=== PATIENT | male | born 1975 | race Caucasian/White ===

== ENCOUNTER → 2021-11-28 | Day surgery (SDC) | payer BC ==
[~2021-11-28] MED LIST: BUPIVACAINE 0.25% 30ML SDV ONE; DICLOFENAC POTA50 MG PO; DIOVAN320 MG PO; FENTANYL CITRATE/PF 100MCG/2 ML INJ ONE; IOPAMIDOL 200 MG/ML 20 ML VIAL IT ONE; LIDOCAINE HCL 1% 30ML-PF VIAL ONE; LIDOCAINE HCL 2% LOCAL INJ 5 ML SDV VIAL INJ ONE; MIDAZOLAM HCL 2 MG/2 ML VIAL ONE; NEURONTIN300 MG PO; POVIDONE IODINE 0.05% 0.05 % ML PO ONE; PROPOFOL IV EMULSION 10 MG/ML 20 ML VIAL ONE; SYNJARDY XR 251 EACH PO; TRIAMCINOLONE ACET 40 MG/ML VIAL ONE
[2021-11-28 07:35] VITALS: BP 122/82
== END | disposition home or self-care (01) ==
LOC: OR 05:35
PROVIDERS: ATTEND Specialist
DX: M16.0 Bilateral primary osteoarthritis of hip (principal); M47.816 Spondylosis without myelopathy or radiculopathy, lumbar region; E11.9 Type 2 diabetes mellitus without complications; I10 Essential (primary) hypertension; E78.5 Hyperlipidemia, unspecified; E66.01 Morbid (severe) obesity due to excess calories; Z01.810 Encounter for preprocedural cardiovascular examination; Z79.84 Long term (current) use of oral hypoglycemic drugs; Z79.899 Other long term (current) drug therapy; Z68.42 Body mass index [BMI] 45.0-49.9, adult
CPT/HCPCS: 20610; 36415; 77002; 82948; 93005; J2001; J2250; J2704; J3010; J3301; Q9967; 76000

== ENCOUNTER 2022-03-21 06:57 | Observation (INO) | payer BC ==
[2022-03-17 09:17] LABS: BASOPHILS # (AUTO) 0.1 (0.0-0.1); EOSINOPHILS # (AUTO) 0.8 (0.0-0.4); EOSINOPHILS % 9.6 % (0.0-6.0); HEMATOCRIT 44.8 % (38.2-49.6); HEMOGLOBIN 13.8 g/dL (14.0-18.0); LYMPHOCYTES # (AUTO) 2.2 (1.0-3.2); LYMPHOCYTES % 27.8 % (18.0-39.1); MEAN CORPUSCULAR HEMOGLOBIN 28.7 pg (28-32); MEAN CORPUSCULAR HGB CONC 30.8 g/dL (31-35); MEAN CORPUSCULAR VOLUME 93.1 fL (81-99); MONOCYTES # (AUTO) 0.7 (0.2-0.8); MONOCYTES % 8.6 % (4.4-11.3); NEUTROPHILS # (AUTO) 4.2 (2.1-6.9); NEUTROPHILS % 52.5 % (38.7-80.0); PLATELET COUNT 299 x10e3/uL (140-360); RED BLOOD COUNT 4.81 x10e6/uL (4.3-5.7); RED CELL DISTRIBUTION WIDTH 14.5 % (11.7-14.4)
[~2022-03-21] VITALS: Ht 172.7 cm; Wt 114.3 kg
[~2022-03-21 06:57] MED LIST changes: -BUPIVACAINE 0.25% 30ML SDV ONE; +CELEBREX200 MG PO; -FENTANYL CITRATE/PF 100MCG/2 ML INJ ONE; -IOPAMIDOL 200 MG/ML 20 ML VIAL IT ONE; -LIDOCAINE HCL 1% 30ML-PF VIAL ONE; -LIDOCAINE HCL 2% LOCAL INJ 5 ML SDV VIAL INJ ONE; +METFORMIN HCL500 M1 PO; -MIDAZOLAM HCL 2 MG/2 ML VIAL ONE; +ORPHENADRINE C100 MG PO; -POVIDONE IODINE 0.05% 0.05 % ML PO ONE; -PROPOFOL IV EMULSION 10 MG/ML 20 ML VIAL ONE; +ROPIVACAINE 246.25 MG, EPINEPHRINE HCL 1:1000 1ML 0.5 MG, CLONIDINE HCL 0.08 MG, KETORO... INJ ONE; -TRIAMCINOLONE ACET 40 MG/ML VIAL ONE
[2022-03-21] MEDS ORDERED: CELECOXIB 200 MG CAP ONE (07:36)
[2022-03-21] MEDS ORDERED: DEXAMETHASONE SOD PHOS 10 MG/1 ML VIAL ONE (07:37)
[2022-03-21] MEDS ORDERED: GABAPENTIN 300 MG CAP ONE (07:38)
[2022-03-21] MEDS ORDERED: CEFAZOLIN SODIUM 2 GM ONE (07:38)
[2022-03-21] MEDS ORDERED: FENTANYL CITRATE/PF 100MCG/2 ML INJ ONE ×3 (08:19→13:04)
[2022-03-21] MEDS ORDERED: MIDAZOLAM HCL 2 MG/2 ML VIAL ONE (08:19)
[2022-03-21] MEDS ORDERED: BUPIVACAINE 0.5%/EPI 30 ML SDV INJ ONE (08:20)
[2022-03-21] MEDS ORDERED: BUPIVACAINE HCL 0.25% 10ML MPF VIAL INJ ONE (08:20)
[2022-03-21] MEDS ORDERED: Vancomycin IV 1,000 MG ONE (09:07)
[2022-03-21] MEDS ORDERED: TRANEXAMIC ACID 20 ML ONE (09:13)
[2022-03-21] MEDS ORDERED: SODIUM CHLORIDE 0.9% 500ML 500 ML ONE (09:16)
[2022-03-21] MEDS ORDERED: SUCCINYLCHOLINE CHLORIDE 20 MG/ML 10ML VIAL ONE (11:05)
[2022-03-21] MEDS ORDERED: SEVOFLURANE INHAL SOLN 250 ML PEN BTL ONE (11:05)
[2022-03-21] MEDS ORDERED: LIDOCAINE HCL 2% LOCAL INJ 5 ML SDV VIAL INJ ONE (11:05)
[2022-03-21] MEDS ORDERED: ONDANSETRON HCL INJ 2MG/ML 2ML 2 MG/ML VIAL ONE (11:05)
[2022-03-21] MEDS ORDERED: PROPOFOL IV EMULSION 10 MG/ML 20 ML VIAL ONE (11:05)
[2022-03-21] MEDS ORDERED: POVIDONE IODINE 0.05% 0.05 % ML PO ONE (11:05)
[2022-03-21] MEDS ORDERED: KETOROLAC TROMETHAMINE 30 MG/ML VIAL ONE (11:05)
[2022-03-21] MEDS ORDERED: ROCURONIUM BROMIDE 10 MG/ML 5ML VIAL IV ONE (11:05)
[2022-03-21] MEDS ORDERED: ACETAMINOPHEN 650 MG SUPP PR PRN (11:15)
[2022-03-21] MEDS ORDERED: ZOLPIDEM TARTRATE 5 MG TAB PO PRN (11:15)
[2022-03-21] MEDS ORDERED: HYDROCODONE/APAP 7.5MG-325MG 1 EA TAB PO PRN (11:15)
[2022-03-21] MEDS ORDERED: ONDANSETRON HCL INJ 2MG/ML 2ML 2 MG/ML VIAL IV PRN (11:15)
[2022-03-21] MEDS ORDERED: DOCUSATE SODIUM 100 MG CAP PO PRN (11:15)
[2022-03-21] MEDS ORDERED: DIPHENHYDRAMINE HCL INJ 50 MG/ML VIAL IV PRN (11:15)
[2022-03-21] MEDS ORDERED: HYDROCODONE/APAP 5MG-325MG TAB PO PRN (11:15)
[2022-03-21] MEDS ORDERED: HYDROMORPHONE 1MG/1ML INJ ONE ×2 (11:32→11:46)
[2022-03-21 12:40] VITALS: BP 104/72
[2022-03-21] MEDS ORDERED: SODIUM CHLORIDE 0.9% 1000ML 1,000 ML IV SCH (13:30)
[2022-03-21 16:00] VITALS: BP 106/73
[2022-03-21] MEDS ORDERED: ASPIRIN 325 MG TAB PO SCH (17:00)
[2022-03-21] MEDS ORDERED: CELECOXIB 200 MG CAP PO SCH (17:00)
[2022-03-21] MEDS ORDERED: ASPIRIN81 MG PO (17:11)
[2022-03-22] MEDS ORDERED: ACETAMINOPHEN 1000 MG/100 ML IV PRN (11:15)
== END 2022-03-21 19:40 | disposition home or self-care (01) ==
LOC: OR 06:57 → PACU V 11:08 → MED/SURG 12:56
PROVIDERS: ADMIT Specialist; ATTEND Specialist
DX: M16.12 Unilateral primary osteoarthritis, left hip (principal); I10 Essential (primary) hypertension; E11.9 Type 2 diabetes mellitus without complications; Z01.818 Encounter for other preprocedural examination; Z20.822 Contact with and (suspected) exposure to COVID-19
CPT/HCPCS: 0223U; 27130; 36415 ×2; 72170; 82948; 85025; 86850; 86900; 86920; 94799; 97110; 97116 ×2; 97161; 97530; C1713; C1776 ×3; G0378; J0171; J0330; J0690; J1100; J1170; J1885; J2001; J2250; J2405; J2704; J2795; J3010; J3370; J7040

== ENCOUNTER 2022-06-05 06:52 | Observation (INO) | payer BC ==
[2022-06-02 09:43] LABS: BASOPHILS # (AUTO) 0.1 (0.0-0.1); BASOPHILS % 0.8 % (0.0-1.0); EOSINOPHILS # (AUTO) 0.5 (0.0-0.4); EOSINOPHILS % 6.8 % (0.0-6.0); HEMATOCRIT 42.6 % (38.2-49.6); HEMOGLOBIN 13.7 g/dL (14.0-18.0); LYMPHOCYTES # (AUTO) 2.1 (1.0-3.2); LYMPHOCYTES % 27.5 % (18.0-39.1); MEAN CORPUSCULAR HGB CONC 32.2 g/dL (31-35); MEAN CORPUSCULAR VOLUME 90.1 fL (81-99); MONOCYTES # (AUTO) 0.7 (0.2-0.8); MONOCYTES % 9.4 % (4.4-11.3); NEUTROPHILS # (AUTO) 4.3 (2.1-6.9); NEUTROPHILS % 55.4 % (38.7-80.0); PLATELET COUNT 358 x10e3/uL (140-360); RED BLOOD COUNT 4.73 x10e6/uL (4.3-5.7); RED CELL DISTRIBUTION WIDTH 13.6 % (11.7-14.4)
[~2022-06-05] VITALS: Ht 172.7 cm; Wt 114.3 kg
[~2022-06-05 06:52] MED LIST changes: +ASPIRIN81 MG PO; +BIOTIN1 MG; -ROPIVACAINE 246.25 MG, EPINEPHRINE HCL 1:1000 1ML 0.5 MG, CLONIDINE HCL 0.08 MG, KETORO... INJ ONE; +[UNRECOGNIZED DRUG - OTHER]
[2022-06-05] MEDS ORDERED: CELECOXIB 200 MG CAP ONE (07:16)
[2022-06-05] MEDS ORDERED: DEXAMETHASONE SOD PHOS 10 MG/1 ML VIAL ONE (07:16)
[2022-06-05] MEDS ORDERED: CEFAZOLIN SODIUM 2 GM ONE (07:16)
[2022-06-05] MEDS ORDERED: GABAPENTIN 300 MG CAP ONE (07:16)
[2022-06-05] MEDS ORDERED: ROPIVACAINE 246.25 MG, EPINEPHRINE HCL 1:1000 1ML 0.5 MG, CLONIDINE HCL 0.08 MG, KETORO... INJ ONE ×5 (08:00)
[2022-06-05] MEDS ORDERED: LACTATED RINGER'S 1,000 ML ONE (08:20)
[2022-06-05] MEDS ORDERED: BUPIVACAINE HCL 0.5% INJ 30 ML VIAL INJ ONE (08:57)
[2022-06-05] MEDS ORDERED: ACETAMINOPHEN 1000 MG/100 ML 100 ML IV ONE (09:15)
[2022-06-05] MEDS ORDERED: SUGAMMADEX SODIUM 200 MG/2 ML VIAL IV ONE (09:15)
[2022-06-05] MEDS ORDERED: Vancomycin IV 1,000 MG ONE (09:16)
[2022-06-05] MEDS ORDERED: SODIUM CHLORIDE 0.9% 500ML 500 ML ONE (09:16)
[2022-06-05] MEDS ORDERED: TRANEXAMIC ACID 20 ML ONE (09:49)
[2022-06-05] MEDS ORDERED: HYDROCODONE/APAP 5MG-325MG TAB PO PRN (11:00)
[2022-06-05] MEDS ORDERED: ZOLPIDEM TARTRATE 5 MG TAB PO PRN (11:00)
[2022-06-05] MEDS ORDERED: DIPHENHYDRAMINE HCL INJ 50 MG/ML VIAL IV PRN (11:00)
[2022-06-05] MEDS ORDERED: ONDANSETRON HCL INJ 2MG/ML 2ML 2 MG/ML VIAL IV PRN (11:00)
[2022-06-05] MEDS ORDERED: ACETAMINOPHEN 650 MG SUPP PR PRN (11:00)
[2022-06-05] MEDS ORDERED: DOCUSATE SODIUM 100 MG CAP PO PRN (11:00)
[2022-06-05] MEDS ORDERED: HYDROMORPHONE 1MG/1ML INJ ONE (11:40)
[2022-06-05] MEDS: HYDROCODONE/APAP 7.5MG-325MG 1 EA TAB PO PRN ×4 (11:50→17:20)
[2022-06-05] MEDS ORDERED: HYDROCODONE/APAP 7.5MG-325MG 1 EA TAB ONE (12:04)
[2022-06-05] MEDS ORDERED: FENTANYL CITRATE/PF 100MCG/2 ML INJ ONE ×3 (12:14→13:35)
[2022-06-05] MEDS ORDERED: LIDOCAINE HCL 2% LOCAL INJ 5 ML SDV VIAL INJ ONE (12:19)
[2022-06-05] MEDS ORDERED: DEXAMETHASONE SOD PHOS INJ 4 MG/ML SDV ONE (12:19)
[2022-06-05] MEDS ORDERED: SEVOFLURANE INHAL SOLN 250 ML PEN BTL ONE (12:19)
[2022-06-05] MEDS ORDERED: ROCURONIUM BROMIDE 10 MG/ML 5ML VIAL IV ONE (12:19)
[2022-06-05] MEDS ORDERED: ONDANSETRON HCL INJ 2MG/ML 2ML 2 MG/ML VIAL ONE (12:19)
[2022-06-05] MEDS ORDERED: PROPOFOL IV EMULSION 10 MG/ML 20 ML VIAL ONE (12:19)
[2022-06-05] MEDS ORDERED: POVIDONE IODINE 0.05% 0.05 % ML PO ONE (12:19)
[2022-06-05 13:00] VITALS: BP 127/80
[2022-06-05 13:13] VITALS: BP 132/86
[2022-06-05] MEDS ORDERED: SODIUM CHLORIDE 0.9% 1000ML 1,000 ML IV SCH (13:30)
[2022-06-05] MEDS ORDERED: MIDAZOLAM HCL 2 MG/2 ML VIAL ONE (13:35)
[2022-06-05 16:06] VITALS: BP 112/70
[2022-06-05] MEDS ORDERED: ASPIRIN 325 MG TAB PO SCH (17:00)
[2022-06-05] MEDS ORDERED: CELECOXIB 200 MG CAP PO SCH (17:00)
[2022-06-06] MEDS ORDERED: ACETAMINOPHEN 1000 MG/100 ML IV PRN (11:00)
== END 2022-06-05 20:10 | disposition home or self-care (01) ==
LOC: OR 06:52 → PACU V 11:41 → MED/SURG3 12:56
PROVIDERS: ADMIT Specialist; ATTEND Specialist
DX: M16.0 Bilateral primary osteoarthritis of hip (principal); I10 Essential (primary) hypertension; E11.9 Type 2 diabetes mellitus without complications; Z20.822 Contact with and (suspected) exposure to COVID-19; Z96.642 Presence of left artificial hip joint; Z01.818 Encounter for other preprocedural examination
CPT/HCPCS: 0223U; 27447; 36415; 72170; 85025; 86850; 86900; 93005; 97116; 97161; 97530; C1713 ×2; C1776 ×3; G0378; J0131; J0171; J0690; J1100 ×2; J1170; J1885; J2001; J2250; J2405; J2704; J2795; J3010; J3370; J7040; J7121

== ENCOUNTER → 2024-06-24 | Day surgery (SDC) | payer BC ==
[2024-06-12 10:23] LABS: CALCIUM 8.6 mg/dL (8.4-10.2); CREATININE, SERUM 0.89 mg/dL (0.72-1.25)
[~2024-06-24] MED LIST changes: +ACETAMINOPHEN 1000 MG/100 ML 100 ML IV ONE; +AMITRIPTYLINE H25 MG PO; +AVODART0.5 MG PO; +BACLOFEN10 MG PO; +BUPIVACAINE LIPOSOME/PF 266 MG/20 ML IJ ONE; +DEXAMETHASONE SOD PHOS INJ 4 MG/ML SDV ONE; +FENTANYL CITRATE/PF 100MCG/2 ML INJ ONE; +FLOMAX0.4 MG PO; +HYDROXYZINE HCL10 MG PO; +LIDOCAINE HCL 2% LOCAL INJ 5 ML SDV VIAL INJ ONE; +METFORMIN HCL500 M2 PO; +METOPROLOL TART25 MG PO; +MOUNJARO5 MG/0.5 M SC; +ONDANSETRON HCL INJ 2MG/ML 2ML 2 MG/ML VIAL ONE; +PROPOFOL IV EMULSION 10 MG/ML 20 ML VIAL ONE; +ROCURONIUM BROMIDE 1 ML IV ONE; +SEVOFLURANE INHAL SOLN 250 ML PEN BTL ONE; +SUGAMMADEX SODIUM 200 MG/2 ML VIAL IV ONE
[2024-06-24] MEDS: DEXTROSE 5% 250ML 250 ML IV ONE (12:25)
[2024-06-24] MEDS: LACTATED RINGER'S 1,000 ML ONE (12:25)
[2024-06-24 13:45] VITALS: BP 136/83; PULSE 83; RESP 17; O2SAT 95
== END | disposition home or self-care (01) ==
LOC: OR 08:25
PROVIDERS: ATTEND Specialist
DX: M75.111 Incomplete rotator cuff tear or rupture of right shoulder, not specified as traumatic (principal); M75.21 Bicipital tendinitis, right shoulder; M75.51 Bursitis of right shoulder; G47.33 Obstructive sleep apnea (adult) (pediatric); I10 Essential (primary) hypertension; E11.9 Type 2 diabetes mellitus without complications; Z71.82 Exercise counseling; Z01.810 Encounter for preprocedural cardiovascular examination; Z01.812 Encounter for preprocedural laboratory examination; Z79.84 Long term (current) use of oral hypoglycemic drugs; Z79.85 Long-term (current) use of injectable non-insulin antidiabetic drugs; Z79.899 Other long term (current) drug therapy; Z68.34 Body mass index [BMI] 34.0-34.9, adult; Z71.3 Dietary counseling and surveillance
CPT/HCPCS: 29827; 36415 ×2; 80048; 82948; 93005; C1713; J0131; J0666; J0690; J1100; J2003; J2405; J2704; J3010; J7121